=== PATIENT | female | born 1940 | race Caucasian/White ===

== ENCOUNTER 2018-10-03 12:18 | Observation (INO) ==
[2018-10-03] MEDS ORDERED: Aspirin 325 MG TABLET PO ONE (12:35)
[2018-10-03 13:11] LABS: Basophils % 0.3 %; Eosinophils # 0.1 K/mcL (0.0-0.6); Eosinophils % 1.1 %; Hemoglobin 12.8 g/dL (11.5-15.4); Immature Granulocytes % 0.2 % (0-4); Lymphocytes # 1.4 K/mcL (0.6-4.6); Lymphocytes % 20.4 %; Mean Corpuscular Hemoglobin 26.3 pg (28.0-33.3); Mean Corpuscular Volume 82.1 fL (83.0-100.0); Mean Platelet Volume 11.2 fL (9.4-12.4); Monocytes # 0.6 K/mcL (0.0-1.3); Neutrophils # 4.6 K/mcL (1.6-8.9); Platelet Count 270 K/mcL (140-400); Red Blood Count 4.87 M/mcL (3.82-4.97)
[2018-10-03 13:23] LABS: INR 1.1; Prothrombin Time 12.6 Seconds (9.4-12.1)
[2018-10-03 13:25] LABS: Activated Partial Thrombo Time 34.4 Seconds (26.0-36.0)
[2018-10-03 13:31] LABS: BUN/Creatinine Ratio 20 (6-26); Blood Urea Nitrogen 16 mg/dL (8-23); Calcium 9.9 mg/dL (8.6-10.3); Carbon Dioxide 24 mEq/L (23-29); Chloride 103 mEq/L (98-107); Glucose 180 mg/dL (70-105); Osmolality,Calculated 290 (280-300); Potassium 3.6 mEq/L (3.5-5.1); Sodium 137 mEq/L (136-145); Troponin I < 0.03 ng/mL (< 0.04); eGFR For Non-African Americans > 60 (> 60)
[2018-10-03 13:43] LABS: Thyroid Stimulating Hormone 3.669 mcIU/mL (0.340-5.600)
[2018-10-03 13:57] LABS: Bilirubin,Urine Negative (Negative); Blood,Urine Negative (Negative); Clarity,Urine Clear (Clear); Color,Urine Yellow (Yellow); Glucose,Urine (UA) Normal (Normal); Ketones,Urine Negative (Negative); Leukocyte Esterase,Urine Large (Negative); Nitrite,Urine Negative (Negative); PH,Urine 6.5 pH Units (5.0-8.0); Protein,Urine Negative (Neg-Trace); Urobilinogen,Urine Normal (Normal)
[2018-10-03 13:58] LABS: Bacteria,Urine None Seen per hpf (None-Few); Hyaline Casts,Urine None Seen per lpf (None-Few); RBC,Urine 0-3 per hpf (0-3); Squamous Epithelial Cell,Urine Many per lpf (None-Few)
[2018-10-03] MEDS ORDERED: Naloxone 0.4 MG/ML INJ IVP PRN (14:08)
--- NOTE | 2018-10-03 14:16 | Internal Med History&Physical ---
Date of Encounter: 10/03/18 Time of Encounter: 14:13 Internal Medicine - H&P: HPI Chief complaint: Lightheadedness Admitted From: Home Plans for Post Hospital Care: Home History of present illness: Ms. Coulter is a 78 year old female history of hypothyroidism presented to the emergency department with lightheadedness. For patient's symptoms began a day before admission as she was using the bathroom to urinate she felt lightheaded which lasted for only a few seconds and resolved by itself. She cannot recall alleviating or aggravating factors. She has never had any symptoms like this before, her symptoms were associated with and are sensation in her neck and flashing lights in her vision so she decided to come to the emergency department for further evaluation on 10/02. In the ED on 10/02 CT head was negative, echocardiogram performed was supple optimal and EKG showed bigeminy. She was sent home to follow-up with her primary care as her symptoms had resolved. Her primary care discussed EKG finding with cardiology is Dr. Villa who recommended her to be admitted for further evaluation of her presyncope and abnormal EKG. Currently she reports that all her symptoms that she felt yesterday have resolved. She denies fever, chills, nausea, vomiting, diarrhea, chest pain, palpitations, shortness of breath, prolonged immobilization, leg swelling, calf tenderness, heat or cold intolerance, PND, orthopnea. He does not have any history of heart disease, not taking aspirin every day however was told yesterday in the emergency department to start taking aspirin 81 mg daily. Upon returning the emergency department on 10/03 basic labs were unremarkable so she was endorsed for admission for further evaluation of her abnormal EKG and presyncope. Past Med Surg Social Fam HX - Past Medical History Medical history: hypertension, thyroid disease Psychiatric history: no psych history - Past Surgical History Additional surgical history: "GOITER REMOVED" - Social History Smoking Status: Never smoker Smokeless Tobacco Status: No Alcohol use: none Drug use: none Internal Medicine - H&P: Meds Atenolol [Tenormin] 25 mg PO DAILY 12/01/15 [History] [place]-3 Fatty Acids [Fish Oil] 300 mg PO DAILY 12/01/15 [History] Levothyroxine Sodium 75 mcg PO QAM 10/03/18 [History] Allergy/AdvReac Type Severity Reaction Status Date / Time simvastatin Allergy Hives Verified 10/03/18 12:28 All Systems PM: review of systems was performed and is negative for pertinent findings except as documented above in the HPI. - Constitutional Vitals: Temp Pulse Resp BP Pulse Ox 98.2 F 111 18 130/69 95 10/03/18 12:33 10/03/18 13:38 10/03/18 13:38 10/03/18 13:38 10/03/18 13:38 Exam: General: Patient is alert, oriented, no acute distress, Head: atraumatic, normocephalic, Eye: normal appearance, PERRL, no scleral icterus, no conjunctival injection ENT: mucous membranes moist, normal external ear exam Neck: normal inspection, trachea midline, full ROM Chest: normal inspection, symmetric chest rise Respiratory: Good respiratory effort. Bilateral breath sounds are clear without wheezing, crackles, or rhonchi. Cardiovascular: Tachycardic. s1 and s2 No clicks, rubs, gallops, or murmors. Abdomen: Bowel sounds present normoactive x-4 quadrants. Abdomen is soft, nondistended. no Epigastric tenderness. No guarding or rebound. No organomegaly noted, obese musculoskeletal: Spontaneously moving all extremities. no edema, no calf tenderness Skin: warm, dry, intact. Neuro: Alert and oriented x4. Sensation light touch intact. Cranial nerves 2- 12 is intact. Not aphasic, rapid hand movements intact, [id number] intact, accommodation intact, visual reinoso grossly intact Psych: Patient's affect is normal Internal Med - H&P Results - Labs CBC & Chem 7: 10/03/18 12:44 10/03/18 12:44 Labs: Short CBC 10/03/18 Range/Units 12:44 WBC 6.6 (4.3-11.1) K/mcL Hgb 12.8 (11.5-15.4) g/dL Hct 40.0 (35.3-44.9) % Plt Count 270 (140-400) K/mcL Neutrophils # 4.6 (1.6-8.9) K/mcL BMP 10/03/18 12:44 Sodium 137 Potassium 3.6 Chloride 103 Carbon Dioxide 24 BUN 16 Creatinine 0.79 Glucose 180 H Calcium 9.9 Cardiac Enzymes 10/03/18 Range/Units 12:44 Troponin I < 0.03 (< 0.04) ng/mL Urine 10/03/18 Range/Units 13:48 Urine Color Yellow (Yellow) Urine Clarity Clear (Clear) Urine pH 6.5 (5.0-8.0) pH Units Ur Specific [place] 1.010 (1.010-1.025) Urine Protein Negative (Neg-Trace) mg/dL Urine Glucose (UA) Normal (Normal) mg/dL - EKG Data -: EKG Interpreted by Myself (Sinus tachycardia, ventricular bigeminy) - Impressions ITS Impressions Chest X-Ray 10/03/18 12:35 IMPRESSION: No acute process. D/ / Elie Martinez MD / Elie Martinez MD Interpreting Provider: Elie Martinez MD - Assessment and plan (1) Pre-syncope Current Visit: Yes Status: Acute Assessment and plan: Syncope, rule out arrhythmia vs vasal-vagal -telemetry -Check orthostatic pressure -BP monitoring -Serial Troponin, CK, CKMB, EKG q 8H x3 -Carotid Dopplers -Supplemental oxygen -IVF NS at 60 mL/hrs -Continue home medication if not contraindicated -Consider MRI head (currently has no vision deficits on exam, negative cerebellar signs) CT head: 10/02- IMPRESSION: No acute intracranial abnormality. TTE 10/02-Impressions: Possible ectopic atrial rhythm. Frequent PVCs are present throughout the study. LVEF difficult to quantify due to frequent ectopy. Grossly appears low normal to mildly reduced. Normal LV chamber size and wall thickness. Indeterminate diastolic function. Normal right ventricular structure and function. Mild-moderate aortic regurgitation. Mild mitral regurgitation. Mild tricuspid regurgitation. Mild pulmonic regurgitation. No pulmonary hypertension. CXR: IMPRESSION: No acute process. (2) Ventricular bigeminy Current Visit: Yes Status: Acute Assessment and plan: EKG findings were reviewed with Dr. Villa by the ED physician Nothing by mouth at midnight for possible stress test/cardiac testing in the morning Cardiology will follow the patient Rest of the management as above (3) Hypothyroidism Current Visit: Yes Status: Acute Assessment and plan: TSH Continue home dose Synthroid Qualifiers: Hypothyroidism type: acquired Qualified Code(s): E03.9 - Hypothyroidism, unspecified (4) DVT prophylaxis Current Visit: Yes Status: Acute Assessment and plan: Heparin subcutaneous - Time Spent With Patient Total time spent is greater than 50% in coordination of care (as documented) at patient's floor/unit and/or counseling patient:
--- NOTE | 2018-10-03 14:33 | Emergency Department Note ---
Disposition Clinical Impression: Palpitations, Near syncope Disposition: Admitted As Inpatient Condition: Good Forms: ED Satisfaction Letter Time of Disposition: 14:44 Arrhythmia/Palpitations HPI - General Chief Complaint: ED Arrhythmia/Palpitations Stated Complaint: Heart Rhythm Problems Time Seen by Provider: 10/03/18 12:31 Source: patient Mode of arrival: ambulatory Limitations: no limitations Nursing Notes Reviewed: Yes Vital Signs Reviewed: Yes - History of Present Illness HPI Narrative: Patient presents to the emergency room today for evaluation of cardiac arrhythmia. Patient was seen several days ago and outpatient providers office for evaluation. She had an EKG completed. The outpatient provider called to follow-up with her today and she did disclose to her that she had a dizziness episode yesterday afternoon. The outpatient provider was concerned and told her to come to the emergency room for evaluation here today. Denied any new sym ptoms or complaints at this time. She did have a cardiac evaluation completed last night here in the emergency department prior to even talking to her PCP. Currently she denying chest pain, shortness of breath, headache, vision changes, nausea vomiting or diarrhea. No fevers no chills. Pt Subjective Complaint: "skipped beats" Onset (ago): day(s) Severity: mild Associated symptoms: Reports: denies other symptoms - Related Data Home Medications Medication Instructions Recorded Confirmed Atenolol [Tenormin] 25 mg PO DAILY 12/01/15 10/03/18 [place]-3 Fatty Acids [Fish Oil] 300 mg PO DAILY 12/01/15 10/03/18 Levothyroxine Sodium 75 mcg PO QAM 10/03/18 10/03/18 Allergies Allergy/AdvReac Type Severity Reaction Status Date / Time simvastatin Allergy Hives Verified 10/03/18 12:28 All systems ED: reviewed and negative except as stated. Review of Systems: As Per HPI Constitutional: Denies: fever, chills Cardiovascular: Reports: palpitations. Denies: chest pain, dyspnea on exertion, orthopnea, edema Respiratory: Denies: cough, dyspnea, wheezes, hemoptysis Gastrointestinal: Denies: abdominal pain, nausea, vomiting, diarrhea, constipation Genitourinary: Denies: urgency, dysuria, frequency Musculoskeletal: Denies: back pain, neck pain Neurological: Denies: headache, weakness Psychiatric: Denies: anxiety Endocrine: Denies: fatigue Past Medical History - Past Medical History Attestation: Yes The following information was validated with the patient. Source: patient Medical history: Reports: hypertension, thyroid disease Psychiatric history: Reports: no psych history - Social History Smoking Status: Never smoker Smokeless Tobacco Status: No Alcohol use: Reports: none Drug use: Reports: none Physical Exam - General Limitations: no limitations General appearance: alert, in no apparent distress - Head Head exam: atraumatic, normocephalic, normal inspection - Eye Eye exam: Present: normal appearance, PERRL, EOMI. Absent: miosis, mydriasis - ENT ENT exam: normal exam, normal oropharynx, mucous membranes moist - Neck Neck exam: Present: normal inspection, full ROM, trachea midline, other. Absent: tenderness, meningismus, lymphadenopathy, thyromegaly - Chest Chest inspection: Present: normal inspection, symmetric chest wall rise. Absent: tenderness - Respiratory Respiratory exam: Present: normal lung sounds bilaterally. Absent: respiratory distress - Cardiovascular Cardiovascular exam: Present: regular rate, normal rhythm, normal heart sounds - Extremities Exam Extremities exam: Present: normal inspection, full ROM, normal capillary refill. Absent: tenderness, pedal edema - Back Exam Back exam: Present: normal inspection, full ROM. Absent: tenderness - Neurological Exam Neurological exam: Present: alert, oriented X3, CN II-XII intact, normal gait - Skin Skin exam: Present: warm, dry, intact, normal color Course Course Narrative: 78-year-old female seen and examined at the time of arrival. See history of present illness. Patient is presenting here today at the request of her outpatient provider in consultation with cardiology for evaluation of cardiac arrhythmia. According to the patient, she was seen earlier this week or last week for a regular evaluation. EKG was completed that time it did show bigeminy. She was contacted this morning and followed by a provider and told her that yesterday she had some dizziness. She also discloses that the patient was seen last night in the emergency room and had a detailed workup completed. She has not had symptoms since yesterday. Patient denies any other complaints or issues here today. She was concerned and asked why she was brought to the emergency department with no complaints or issues. Patient otherwise is asymptomatic denying chest pain denying shortness of breath denying fevers chills nausea vomiting or diarrhea. No headache no vision changes. Denies any other complaints or issues. Family is with her at the bedside and states that she is acting completely normal at this point. Vital signs otherwise stable. Initial EKG was reviewed by myself shows stable bigeminy with intermittent runs of sinus rhythm. No acute signs of cardiac abnormality or arrhythmia. Detailed workup from last night was reviewed by myself. CT imaging of the head chest x- ray labs including thyroid function and troponin were all normal. Patient is discharged with similar EKG morphology. Patient is again asymptomatic here today. On my physical exam lungs are clear heart has premature complexes noted on auscultation with no murmurs at this time. She has no signs of pulsatile masses or lesions. She has no history of coronary artery disease or Dissection or aneurysm. Repeat evaluation will be completed here today with electrolytes to be reviewed and discussed. I also contacted the primary care provider to discuss the recommendations for coming to the emergency room to make sure there is no other etiology that were missing during our conversations. Disposition pending the full workup and treatment course. - Reevaluation(s) Reevaluation #1: The primary care provider Patience Patiño and I reviewed the case. There is some concern for possible near syncopal or presyncopal events leading up to the context of the presentation here today. I also reviewed the patient's detailed workup completed last night. Patience then stated that she did have the EKG reviewed with the suction worker at the outpatient facility. The recommendations at that time are that the patient come to the emergency room for possible admission to have an ischemic workup completed. I did discuss this with the suction worker via phone as well as the hospitalist. After the workup is established. There is no acute findings during this treatment course here in the emergency department because of the concern for ischemia with the described near syncopal events the patient will be admitted for monitoring continuation of care. She is otherwise asymptomatic and has had no acute changes since the workup is completed yesterday. The hospitalist Dr. Nixon reviewed the case. She had no other recommendations or concerns. Patient will be admitted for monitoring continuation of care cardiac related etiology. Labs are otherwise reviewed and unremarkable this time as well. Thyroid function was not repeated considering it was normal yesterday. Time: 14:43 Vital Signs Temperature 98.2 F 10/03/18 12:27 Pulse Rate 80 10/03/18 12:27 Respiratory Rate 16 10/03/18 12:27 Blood Pressure 112/70 10/03/18 12:27 O2 Sat by Pulse Oximetry 98 10/03/18 12:27 Temperature 98.2 F 10/03/18 12:33 Pulse Rate 111 10/03/18 13:38 Respiratory Rate 18 10/03/18 13:38 Blood Pressure 130/69 10/03/18 13:38 O2 Sat by Pulse Oximetry 95 10/03/18 13:38 Oxygen Delivery Oxygen Delivery Room Air Arrhythmia/Palpitations - MDM Narrative Medical decision making narrative: Arrhythmia, near syncope - Medical Records Medical records reviewed: Yes I reviewed the patient's medical records. - Lab Data Lab results reviewed: Yes I reviewed the patient's lab results. Result diagrams: 10/03/18 12:44 10/03/18 12:44 Lab Results 10/03/18 10/03/18 10/03/18 Range/Units 12:44 12:44 12:44 WBC 6.6 (4.3-11.1) K/mcL RBC 4.87 (3.82-4.97) M/mcL Hgb 12.8 (11.5-15.4) g/dL Hct 40.0 (35.3-44.9) % MCV 82.1 L (83.0-100.0) fL MCH 26.3 L (28.0-33.3) pg MCHC 32.0 (31.6-35.5) g/dL RDW 14.0 (11.5-14.5) % Plt Count 270 (140-400) K/mcL MPV 11.2 (9.4-12.4) fL Immature Gran % 0.2 (0-4) % Seg Neutrophils % 69.0 % Lymphocytes % 20.4 % Monocytes % 9.0 % Eosinophils % 1.1 % Basophils % 0.3 % Neutrophils # 4.6 (1.6-8.9) K/mcL Lymphocytes # 1.4 (0.6-4.6) K/mcL Monocytes # 0.6 (0.0-1.3) K/mcL Eosinophils # 0.1 (0.0-0.6) K/mcL Basophils # 0.0 (0.0-0.2) K/mcL PT 12.6 H (9.4-12.1) Seconds INR 1.1 APTT 34.4 (26.0-36.0) Seconds Sodium 137 (136-145) mEq/L Potassium 3.6 (3.5-5.1) mEq/L Chloride 103 (98-107) mEq/L Carbon Dioxide 24 (23-29) mEq/L BUN 16 (8-23) mg/dL Creatinine 0.79 (0.60-1.20) mg/dL Est GFR ( Amer) > 60 (> 60) Est GFR (Non-Af Amer) > 60 (> 60) BUN/Creatinine Ratio 20 (6-26) Glucose 180 H (70-105) mg/dL Calculated Osmolality 290 (280-300) Calcium 9.9 (8.6-10.3) mg/dL Magnesium 2.0 (1.6-2.6) mg/dL Troponin I < 0.03 (< 0.04) ng/mL TSH 3.669 (0.340-5.600) mcIU/mL Urine Color (Yellow) Urine Clarity (Clear) Urine pH (5.0-8.0) pH Units Ur Specific [place] (1.010-1.025) Urine Protein (Neg-Trace) mg/dL Urine Glucose (UA) (Normal) mg/dL Urine Ketones (Negative) mg/dL Urine Blood (Negative) Urine Nitrite (Negative) Urine Bilirubin (Negative) Urine Urobilinogen (Normal) mg/dL Ur Leukocyte Esterase (Negative) Urine Microscopic RBC (0-3) per hpf Urine Microscopic WBC (0-3) per hpf Ur Squamous Epith Cells (None-Few) per lpf Urine Bacteria (None-Few) per hpf Hyaline Casts (None-Few) per lpf Ur Culture Indicated? (NO) 10/03/18 Range/Units 13:48 WBC (4.3-11.1) K/mcL RBC (3.82-4.97) M/mcL Hgb (11.5-15.4) g/dL Hct (35.3-44.9) % MCV (83.0-100.0) fL MCH (28.0-33.3) pg MCHC (31.6-35.5) g/dL RDW (11.5-14.5) % Plt Count (140-400) K/mcL MPV (9.4-12.4) fL Immature Gran % (0-4) % Seg Neutrophils % % Lymphocytes % % Monocytes % % Eosinophils % % Basophils % % Neutrophils # (1.6-8.9) K/mcL Lymphocytes # (0.6-4.6) K/mcL Monocytes # (0.0-1.3) K/mcL Eosinophils # (0.0-0.6) K/mcL Basophils # (0.0-0.2) K/mcL PT (9.4-12.1) Seconds INR APTT (26.0-36.0) Seconds Sodium (136-145) mEq/L Potassium (3.5-5.1) mEq/L Chloride (98-107) mEq/L Carbon Dioxide (23-29) mEq/L BUN (8-23) mg/dL Creatinine (0.60-1.20) mg/dL Est GFR ( Amer) (> 60) Est GFR (Non-Af Amer) (> 60) BUN/Creatinine Ratio (6-26) Glucose (70-105) mg/dL Calculated Osmolality (280-300) Calcium (8.6-10.3) mg/dL Magnesium (1.6-2.6) mg/dL Troponin I (< 0.04) ng/mL TSH (0.340-5.600) mcIU/mL Urine Color Yellow (Yellow) Urine Clarity Clear (Clear) Urine pH 6.5 (5.0-8.0) pH Units Ur Specific [place] 1.010 (1.010-1.025) Urine Protein Negative (Neg-Trace) mg/dL Urine Glucose (UA) Normal (Normal) mg/dL Urine Ketones Negative (Negative) mg/dL Urine Blood Negative (Negative) Urine Nitrite Negative (Negative) Urine Bilirubin Negative (Negative) Urine Urobilinogen Normal (Normal) mg/dL Ur Leukocyte Esterase Large H (Negative) Urine Microscopic RBC 0-3 (0-3) per hpf Urine Microscopic WBC 5-15 H (0-3) per hpf Ur Squamous Epith Cells Many H (None-Few) per lpf Urine Bacteria None Seen (None-Few) per hpf Hyaline Casts None Seen (None-Few) per lpf Ur Culture Indicated? NO. A (NO) - Radiology Data Radiology results reviewed: Yes I reviewed the patient's radiology results. Chest x-ray is unremarkable today. CT of the head is unremarkable from yesterday with no acute pathology. - EKG Data EKG attestation: Yes I reviewed and interpreted this EKG. EKG results narrative: EKG shows sinus rhythm with bigeminy coupling beats. There is no acute signs of ST segment elevation or abnormality noted at this point. No acute signs of WPW or [place]. She has similar morphology noted from EKG collected yesterday. Patient is denying chest pain. HI interval 106. QRS duration of 82. QTC of 407.
[2018-10-03] MEDS: 0.9 % Sodium Chloride 1,000 ML IVC SCH (17:23)
[2018-10-03] MEDS: *HR* Heparin 5,000 UNIT/ML VIAL SQ SCH (20:50)
[2018-10-04] MEDS: Melatonin 3 MG TABLET PO PRN ×2 (00:12→23:00)
[2018-10-04 01:01] LABS: Hematocrit 39.5 % (35.3-44.9); Hemoglobin 12.3 g/dL (11.5-15.4); Mean Corpuscular HGB Conc 31.1 g/dL (31.6-35.5); Mean Corpuscular Hemoglobin 25.9 pg (28.0-33.3); Mean Corpuscular Volume 83.2 fL (83.0-100.0); Mean Platelet Volume 12.1 fL (9.4-12.4); Platelet Count 243 K/mcL (140-400); Red Blood Count 4.75 M/mcL (3.82-4.97); Red Cell Distribution Width 13.9 % (11.5-14.5)
[2018-10-04 01:20] LABS: BUN/Creatinine Ratio 23 (6-26); Blood Urea Nitrogen 16 mg/dL (8-23); Calcium 9.1 mg/dL (8.6-10.3); Carbon Dioxide 25 mEq/L (23-29); Chloride 106 mEq/L (98-107); Chol/HDL Ratio 4.3 (0-4.9); Cholesterol 209 mg/dL (< 200); Glucose 112 mg/dL (70-105); HDL Cholesterol 49 mg/dL (40-59); LDL Cholesterol,Calculated 131 mg/dL (0-99); Osmolality,Calculated 290 (280-300); Potassium 3.7 mEq/L (3.5-5.1); Sodium 139 mEq/L (136-145); Triglycerides 144 mg/dL (< 150); eGFR For Non-African Americans > 60 (> 60)
[2018-10-04] MEDS: *HR* Heparin 5,000 UNIT/ML VIAL SQ SCH ×3 (05:08→21:56)
[2018-10-04 08:37] LABS: Estimated Average Glucose 134 mg/dl; Hemoglobin A1C 6.3 %
[2018-10-04] MEDS: 0.9 % Sodium Chloride 1,000 ML IVC SCH (09:15)
--- NOTE | 2018-10-04 10:05 | Cardiology Consult Note ---
Addendum entered and electronically signed by Solomon Burk DO 10/04/18 12:24: I examined this patient and my medical decision-making was reviewed with the R ujan diegot Physician. I agree with the documented findings, disposition and treatment plan as described except to the extent set forth below. Patient independently seen and examined. Describes an episode of near-syncope when going from a sitting to a standing position. She denies syncopal event. Presenting ECG demonstrated sinus rhythm with PVCs. Denies any prior cardiac history. Describes a remote negative stress test. She has never required a cardiac catheterization. Serial troponin measurements negative. TTE recently obtained for PVCs. Grossly, LVEF low normal to mildly reduced. Mild to moderate aortic regurgitation. Mild mitral, tricuspid, and pulmonic regurgitation. No pulmonary hypertension. Technically difficult study due to frequent PVCs. Impressions: 1. Near syncope. Symptoms suggest orthostasis as it occurred from a sitting to standing position. Given frequent PVCs, maintain telemetry to rule out arrhythmias. 2. Frequent PVCs. Recommendations: 1. Patient admits she does not drink much fluid at home. We discussed the importance of adequate hydration. 2. Recommend stress test to further evaluate PVCs, rule out ischemia. 3. Continue beta madai therapy. 4. Further recommendations to follow. Thanks, Solomon Burk DO, [facility] Original Note: Date of Encounter: 10/04/18 Time of Encounter: 10:00 Assessment and Plan (1) Pre-syncope Current Visit: Yes Status: Acute Presyncope episode occurred once- possibly orthostatic hypotension given history. Differential includes vertebral artery stentosis given neurological symptoms and perception of sound of turbulence with neck flexion - consider work up per primary - hold atentolol , restart after stress test atenolol 25 mg daily - encourage fluids Mild othostatic decrease in blood pressure TSH 3.8 normal Carotid duplex prelim showed non stenotic plaque - awaiting full report Head CT - normal Echo - difficult to esitmae EF due to multiple PVCs. Indeterminate diastolic function Normal right ventricular structure and function Mid to moderate aortic reguration Mild Mitral, tricuspid and pulmonic regurgitations (2) Ventricular bigeminy Current Visit: Yes Status: Acute Episodic ventricular bigeminy monitored in tele with periods of normal sinus r ythem. EKG 10-02 reviewed and showed ventricular bigeminy with out indication of acute ischemia. Plan for nuclear stress test today. - continue cardiac monitoring - continue asa - restart atentolol after stress test Negative tropoinins x3 Further recommendations pending stress test... (3) Aura Current Visit: Yes Status: Acute Patient describes transient aura with out migraine but associated with perception of rushing sound - consider neck pathology Discussion w patient/family: The assessment and plan as outlined above was discussed with the patient and/or family members who expressed understanding and agreement. All questions were answered. Thank you for involving us in the care of your patient. Please call with any questions. History of Present Illness Consult date: 10/04/18 Consult reason: ventricular bigeminy Chief complaint: presyncope History of present illness: Ms. Coulter is a 78 year old female hx mitral valve prolapse, HTN and hypothyroidism presented after one episode of pre-syncope found to be in ventricular bigimeny. She was evaluated by PCP for one week of rushing water sound whenever she flex or extends her neck - concern for cardiac pathology lead to echo on 10-02 . After returning home, she casey quickly from sitting and became dizzy - resolved in few minutes with no syncope. She also notes separate incident this weekend of blurry flashing lights in peripheral vision first in left eye then right resolved in a few minutes. Admits to poor oral hydration. No recent changes in medications; hypothyroid is well controlled and has been in atenolol for decades. Past Med Surg Social Fam HX - Past Medical History Medical history: hypertension, thyroid disease Psychiatric history: no psych history - Past Surgical History Surgical History: appendectomy Additional surgical history: "GOITER REMOVED", thyroidectomy - Social History Smoking Status: Never smoker Smokeless Tobacco Status: No Alcohol use: none Drug use: none - Family History Father Living Status: Age at : 88 Hx Family Cardiac Disorders: Yes (paCER) Medications and Allergies Atenolol [Tenormin] 25 mg PO DAILY 12/01/15 [History] [place]-3 Fatty Acids [Fish Oil] 300 mg PO DAILY 12/01/15 [History] Levothyroxine Sodium 75 mcg PO QAM 10/03/18 [History] Allergy/AdvReac Type Severity Reaction Status Date / Time simvastatin Allergy Hives Verified 10/03/18 12:28 All Systems Review: The remainder of the systems were reviewed and are negative - Constitutional Constitutional: no frequent falls, no weakness - EENT Eyes: blurred vision, other (flashing lights), no loss of vision - Cardiovascular Cardiovascular: chest pain at rest, rapid heart rate (with exercise ), no diaphoresis, no dyspnea on exertion, no irregular heart rhythm, no leg edema, no palpitations - Respiratory Respiratory: no cough, no dyspnea, no wheezing - Gastrointestinal Gastrointestinal: constipation, no abdominal pain, no diarrhea, no nausea - Genitourinary Genitourinary: no dysuria, no hematuria, no other (increased frequency) - Neurological Neurological: dizziness, no abnormal speech, no loss of vision, no memory loss, no numbness, no syncope - Psychiatric Psychiatric: no anxiety, no depression, no other (denies confusion) Physical Examination Vital Signs, Last 4 Hours Temp Pulse Resp BP Pulse Ox 10/04/18 07:33 97.5 F L 71 20 109/62 94 General: Conversant, No Apparent Distress HEENT: Atraumatic, Normocephaly, Mucus Membranes Moist Neck: No JVD, Normal carotid pulses Cardiac: Reg Rate and Rhythm, No Murmur Lungs: Normal Breath Sounds, No Wheeze, Rales, Rhonchi Neuro: Alert and responsive, No focal deficits noted, Other (CN 2-12 intact, normal heal to skin, normal finger to nose,) Abdomen: Soft, Non-Tender Skin: No rashes noted on visualized skin Musculoskeletal: No Chest Wall Tenderness, Other (upper and lower extremity sensation intact and strength good) Extremities: No Clubbing, No Cyanosis, No Edema, Normal Pulses Other: Neck; sound symptoms reproducible on passive flexion but could to appreciate clicks, increased tissue tension, no tenderness to palpation, no restriction to flexion or rotation Results 10/04/18 00:24 10/04/18 00:24 Lab Results 10/03/18 10/03/18 10/03/18 12:44 12:44 12:44 WBC 6.6 Hgb 12.8 Hct 40.0 Plt Count 270 INR 1.1 APTT 34.4 Sodium 137 Potassium 3.6 Chloride 103 Carbon Dioxide 24 BUN 16 Creatinine 0.79 Glucose 180 H Calcium 9.9 Magnesium 2.0 Troponin I < 0.03 TSH 3.669 10/03/18 10/04/18 10/04/18 18:17 00:24 00:24 WBC 6.1 Hgb 12.3 Hct 39.5 Plt Count 243 INR APTT Sodium Potassium Chloride Carbon Dioxide BUN Creatinine Glucose Calcium Magnesium Troponin I < 0.03 < 0.03 TSH 10/04/18 00:24 WBC Hgb Hct Plt Count INR APTT Sodium 139 Potassium 3.7 Chloride 106 Carbon Dioxide 25 BUN 16 Creatinine 0.70 Glucose 112 H Calcium 9.1 Magnesium Troponin I TSH Consult Discharge Plan - Plan Referrals: Patience Villavicencio CNP [Primary Care Provider] - 10/09/18 4:00 pm
[2018-10-04] MEDS: Aspirin 81 MG TAB.CHEW PO SCH (12:29)
--- NOTE | 2018-10-04 15:45 | Internal Med Progress Note ---
Hospitalist Progress Note - Encounter Date of Encounter: 10/04/18 Time of Encounter: 15:43 - Subjective Interval History: Patient was seen examined and bedside she is resting comfortably denied anymore lightheadedness/dizziness denied any syncopal episodes denied any chest pain/shortness of breath - Exam Vitals: Temp Pulse Resp BP Pulse Ox 98.0 F 68 16 124/61 96 10/04/18 15:10 10/04/18 15:10 10/04/18 15:10 10/04/18 15:10 10/04/18 15:10 Exam: Gen: Alert, awake, Oriented to time,place and person Chest: Diminished breath sounds B/L, No wheezing, No crackles, No rales Heart: S1S2+ RRR No murmurs Abd: Soft, NT, BS +, No organomegaly Ext: No edema, pulses are palpable, No calf tenderness Neuro : Benign findings Skin: No rash. - Assessment and Plan (1) Pre-syncope Current Visit: Yes Status: Acute Assessment and Plan: Most likely vasovagal / /ortho static given her EKG changes ventricular bygeminy and PVCs need ischemic work up scheduled for nuclear stress test in the morning continue IV hydration appreciate cardiology recommendations will do daily ortho stats (2) Ventricular bigeminy Current Visit: Yes Status: Acute Assessment and Plan: Continue beta madai Scheduled for stress test in the morning to rule out any ischemic event (3) Hypothyroidism Current Visit: Yes Status: Acute Assessment and Plan: TSH -3.8 Continue home dose Synthroid (4) DVT prophylaxis Current Visit: Yes Status: Acute Assessment and Plan: Heparin subcutaneous - Time Spent with Patient Total time spent is greater than 50% in coordination of care (as documented) at patient's floor/unit and/or counseling patient: Internal Medicine: Result - Labs CBC & Chem 7: 10/04/18 00:24 10/04/18 00:24 Labs: Short CBC 10/04/18 Range/Units 00:24 WBC 6.1 (4.3-11.1) K/mcL Hgb 12.3 (11.5-15.4) g/dL Hct 39.5 (35.3-44.9) % Plt Count 243 (140-400) K/mcL BMP 10/04/18 00:24 Sodium 139 Potassium 3.7 Chloride 106 Carbon Dioxide 25 BUN 16 Creatinine 0.70 Glucose 112 H Calcium 9.1 Cardiac Enzymes 10/03/18 10/04/18 Range/Units 18:17 00:24 Troponin I < 0.03 < 0.03 (< 0.04) ng/mL - ABG Interpretation ABG results: PT/INR, D-dimer PT 12.6 Seconds (9.4-12.1) H 10/03/18 12:44 Consult Discharge Plan - Plan Referrals: Patience Villavicencio, [employer] [facility]PER[facility] [Primary Care Provider] - 10/09/18 4:00 pm (3) Hypothyroidism Qualifiers: Hypothyroidism type: acquired Qualified Code(s): E03.9 - Hypothyroidism, unspecified
--- NOTE | 2018-10-04 20:50 | Electrocardiograph Report ---
[place] [facility] Test Date: 2018-10-03 Pat Name: Kiya Coulter Department: EXAM1 Room: 3B34 Gender: F Nurse Clinical: : 1940 Requested By: Matt Hamm Order Number: [id number] Reading MD: Indra Pena Measurements Intervals [place] Rate: 132 P: 38 MA: 106 QRS: 59 QRSD: 82 T: 77 QT: 350 QTc: 407 Interpretive Statements Sinus tachycardia Ventricular tachycardia, unsustained Short MA interval Prominent P waves, nondiagnostic Minimal ST depression, inferior leads Electronically Signed On 10-04-2018 20:48:35 EST by Indra Pena
[2018-10-05 03:56] VITALS: BP 104/58
[2018-10-05] MEDS ORDERED: Regadenoson 0.4 MG/5 ML SYRINGE IVP ONE (05:36)
[2018-10-05] MEDS: *HR* Heparin 5,000 UNIT/ML VIAL SQ SCH (05:51)
[2018-10-05] MEDS: Aspirin 81 MG TAB.CHEW PO SCH (09:24)
--- NOTE | 2018-10-05 10:24 | Discharge Summary ---
- NOTES TO OUTPATIENT PROVIDER Notes to Outpatient Provider: f/u with PCP in one week. f/u with Cardiology in 1-2 weeks. please conitnue taking Atenolol Orders not resulted at time of discharge: Pending orders 10/03/18 14:08 ECG 12 lead ECG [ECG] Stat 10/05/18 05:38 NM jeannie perf SPECT multi [NM] Routine Date of Encounter: 10/05/18 Time of Encounter: 10:20 - Discharge Diagnosis (1) Pre-syncope Priority: Primary Status: Acute (2) Ventricular bigeminy Priority: Primary Status: Acute (3) Hypothyroidism Priority: Secondary Status: Acute Qualifiers: Hypothyroidism type: acquired Qualified Code(s): E03.9 - Hypothyroidism, unspecified (4) DVT prophylaxis Priority: Secondary Status: Acute Hospital course: Ms. Coulter is a 78 year old female hx mitral valve prolapse, HTN and hypothyroidism presented after one episode of pre-syncope found to be in ventricular bigimeny. Patient's symptoms began a day before admission as she was using the bathroom to urinate she felt lightheaded which lasted for only a few seconds and resolved by itself. In the ED on 10/02 CT head was negative, echocardiogram performed was supple optimal and EKG showed bigeminy. She was sent home to follow-up with her primary care as her symptoms had resolved. Her primary care discussed EKG finding with cardiology is Dr. Villa who recommended her to be admitted for further evaluation of her presyncope and abnormal EKG. patient syncopal episode seems to be due to orthostatic hypotension. Started her on IV fluids and her symptoms improved. Regarding her ventricular bigeminy patient did go for other ischemic cardiac workup, nuclear stress test came back is negative for any ischemia/infarction. Patient was evaluated with cardiology who recommend to continue beta madai for now - Time Spent with Patient Total time spent providing and/or coordinating discharge services: - Discharge Medications Prescriptions: Aspirin 81 mg PO DAILY #30 tab.chew Home Medications: Atenolol [Tenormin] 25 mg PO DAILY 12/01/15 [History] [place]-3 Fatty Acids [Fish Oil] 300 mg PO DAILY 12/01/15 [History] Levothyroxine Sodium 75 mcg PO QAM 10/03/18 [History] Aspirin 81 mg PO DAILY #30 tab.chew 10/05/18 [Rx] Melatonin 3 mg PO HS PRN tablet 10/05/18 [Rx] Allergies/Adverse Reactions: Allergy/AdvReac Type Severity Reaction Status Date / Time simvastatin Allergy Hives Verified 10/03/18 12:28 Date of admission: 10/03/18 15:21 Primary care physician: Patience Villavicencio Consults: 10/03/18 14:34 Consult to Cardiology [CONS] Stat Comment: Consulting Provider: [facility] [place] Reason for Consult: Presyncope, ventricular bigeminy Dr. Villa has been contacted by the ED physician Call Completed: Yes - Constitutional Vitals: Temp Pulse Resp BP Pulse Ox 97.9 F 61 16 104/58 95 10/05/18 03:54 10/05/18 03:54 10/05/18 03:54 10/05/18 03:54 10/05/18 03:54 General appearance: Present: A&O X 3 Exam: Gen: Alert, awake, Oriented to time,place and person Chest: Diminished breath sounds B/L, No wheezing, No crackles, No rales Heart: S1S2+ RRR No murmurs Abd: Soft, NT, BS +, No organomegaly Ext: No edema, pulses are palpable, No calf tenderness Neuro : Benign findings Skin: No rash. - Patient Status Disposition: Home, Self-Care Condition: Good Overall status at discharge: patient is back to baseline - Discharge Instructions Follow Up With: Patience Villavicencio, [facility] [Primary Care Provider] - 10/09/18 4:00 pm Solomon Burk DO [Partnered Physician] - - Diet and Activity Activity: increase activity as tolerated Diet: low salt diet
== END 2018-10-05 12:29 | disposition home or self-care (01) ==
LOC: EMEROOARM 12:18 → 3BNU 12:18
PROVIDERS: ADMIT Internal Medicine; ATTEND Internal Medicine